=== PATIENT | male | born 1950 | race Caucasian/White ===

== ENCOUNTER → 2017-05-20 | Outpatient (CLI) | payer SELFPAY ==
--- NOTE | 2017-05-20 10:31 | CT ---
HISTORY: Screening. Study: Cardiac calcium scoring. Technique: Multiple axial images of the chest were obtained on a [address] from the main pulmonary artery to the base of the heart. Noncontrast evaluation of the heart was performed fo r calcium scoring with prospective gating. Findings: A total calcium score of 793 is observed which is between the 75th and 90th percentile for males between the ages of 60 and 64. This score implies extensive atherosclerotic plaque with high l ikelihood of at least 1 significant coronary narrowing. LM: 1 LAD: 515 LCX: 48 RCA: 229 Extracardiac findings: No pathologically enlarged lymphadenopathy can be observed. No significant pericardial effusion can be identified. The visualized portions of the lung parenchyma are unremarkable. No lytic or blastic lesions can be identified within the visualized bony thorax. There is a nonspecific 4 mm cyst withi n the anterior aspect of the spleen. IMPRESSION: A total calcium score of 793 is observed which is between the 75th and 90th percentile for males betw een the ages of 60 and 64. Incidentally noted 4 cm splenic cyst. Reported By:
== END ==
LOC: RAD 08:01
PROVIDERS: ATTEND Family Medicine
DX: Z13.6 Encounter for screening for cardiovascular disorders (principal)